=== PATIENT | male | born 1980 | race Caucasian/White ===

== ENCOUNTER 2016-07-17 15:57 | Emergency (ER) | payer OTHER, MEDICAID ==
--- NOTE | 2016-07-17 15:49 | EDPHY ---
H & P Time Seen by Provider: 07/17/16 16:25 Constitutional: Initial Vital Signs Temperature (C) 36.7 C 07/17/16 16:00 Heart Rate 89 07/17/16 16:00 Respiratory Rate 18 07/17/16 16:00 Blood Pressure 112/55 L 07/17/16 16:00 O2 Sat (%) 96 07/17/16 16:00 O2 Delivery Mode Room Air Allergies/Adverse Reactions: Penicillins Allergy (Severe, Verified 07/17/16 16:04) COTTONWOOD Allergy (Uncoded 12/25/13 23:03) Home Medications: Medication Instructions Recorded NK [No Known Home Meds] 07/17/16 Medical Decision Making ED Course/Re-evaluation: CHIEF COMPLAINT: Mechanical fall, right hip pain HISTORY OF PRESENT ILLNESS: This patient is a 36 year old male with a history of muscular dystrophy who presents to the Emergency Department complaining of moderate right hip pain secondary to a mechanical fall earlier today. He is able to bear weight on his right side but his discomfort is exacerbated when sitting. He also complains of pain and swelling to his left thumb secondary to the fall. He denies any additional injuries or complaints. He denies trauma to his head, neck, or back in the fall. No additional pertinent medical history. REVIEW OF SYSTEMS: A 10 point review of systems was performed and is negative with the exception of the elements mentioned in the history of present illness. PHYSICAL EXAM: HR 89, BP 112/55, O2 Sat 96%, RR 18. Temp noted General Appearance: Alert, well hydrated, appropriate, and non-toxic appearing. Head: Atraumatic without scalp tenderness or obvious injury Eyes: Pupils equal, round, reactive to light and accommodation, EOMI, no trauma , no injection. Ears: Clear bilaterally, no perforation, normal landmarks Nose: Atraumatic, no rhinorrhea, clear. Throat: There is no erythema or exudates, no lesions, normal tonsils, mucus membranes moist. Neck: Supple, 2+ carotid upstroke, nontender, no lymphadenopathy. Respiratory: No retractions, no distress, no wheezes, and no accessory muscle use. Lungs are clear to auscultation bilaterally. Cardiovascular: Regular rate and rhythm, no murmurs, rubs, or gallops. Bilateral carotid, radial, dorsalis pedis, and posterior tibial pulses intact. Good capillary refill all extremities. Gastrointestinal: Abdomen is soft, nontender, non-distended, no masses, no rebound, no guarding, no peritoneal signs. Musculoskeletal: Pain over his bony pelvis, right-sided. Pain and mild swelling of the left thumb and wrist. Neurological: Alert, appropriate, and interactive. The patient has normal DTRs and non-focal cranial nerves, motor, sensory, and cerebellar exam. Skin: No rashes, good turgor, no nodules on palpation. Past medical history: Muscular dystrophy. Past surgical history: Denies. Family history: Non-contributory. Social history: Homeless. DIAGNOSTICS/PROCEDURES/CRITICAL CARE TIME: Study: X-ray of the right femur Indication: Pain, trauma Results: X-ray of the right femur was obtained. The results of the study are: negative for fracture. The study was read by the radiologist, Dr. Deacon Hollins. I viewed the images myself on the PACS system. Study: X-ray of the left wrist Indication: Pain, trauma Results: X-ray of the left wrist was obtained. The results of the study are: negative for fracture. The study was read by the radiologist, Dr. Deacon Hollins. I viewed the images myself on the PACS system. DIFFERENTIAL DIAGNOSIS: The differential diagnosis for the patient's trauma included but was not limited to long bone and pelvic bone fractures or contusion. MEDICAL DECISION MAKING: This patient is a 36 year old male with muscular dystrophy who presents with complaints of right hip injury and left hand injury secondary to a mechanical fall this afternoon. On exam, he has mild swelling and pain to his left hand most severe over his left thumb. He has left-sided pain over the bony pelvis. Will proceed with x-rays of both. Images reviewed by myself and are negative for fracture. I discussed imaging results with the patient and answered his questions. He will be discharged home in good condition with Tylenol and Ibuprofen instructions. He is agreeable to this and understands return precautions. Departure - Departure Disposition: Home, Routine, Self-Care Clinical Impression: Right hip pain Fall Qualifiers: Encounter type: initial encounter Qualified Code(s): W19.XXXA - Unspecified fall, initial encounter Thumb injury Qualifiers: Encounter type: initial encounter Laterality: left Qualified Code(s): S69.92XA - Unspecified injury of left wrist, hand and finger(s), initial encounter Condition: Good Instructions: Hip Pain (ED), Finger Sprain (ED) Additional Instructions: 1. Alternate 450mg Ibuprofen and 600mg Tylenol every 6 hours as needed for pain and swelling. 2. Return to the Emergency Department if you experience worsening pain or swelling or for other serious concerns. 3. Follow-up with [facility] for reevaluation if your pain does not improve in 3-5 days. Referrals: [facility] [Outside] - As per Instructions Report Scribed for: Kp Mehta Report Scribed by: Radha Felix Date of Report: 07/17/16 Time of Report: 16:26
[2016-07-17 16:06] VITALS: RESP 18; TEMP 98.1
[2016-07-17] MEDS ORDERED: IBUPROFEN 200 MG TAB PO ONE ×2 (17:48→17:56)
[2016-07-17 17:57] VITALS: BP 132/78; PULSE 78; O2SAT 99
== END 2016-07-17 17:59 | disposition home or self-care (01) ==
LOC: EDUNIT#
DX: S79.911A Unspecified injury of right hip, initial encounter (principal); S69.92XA Unspecified injury of left wrist, hand and finger(s), initial encounter; W18.39XA Other fall on same level, initial encounter; Y93.89 Activity, other specified

== ENCOUNTER 2016-07-31 12:17 | Emergency (ER) | payer OTHER, MEDICAID ==
[2016-07-31 12:32] VITALS: O2SAT 93
--- NOTE | 2016-07-31 13:18 | EDPHY ---
H & P Time Seen by Provider: 07/31/16 13:00 HPI/ROS: CHIEF COMPLAINT: "I'm cold." HISTORY OF PRESENT ILLNESS: This patient is a homeless 36 year old male who presents to the Emergency Department after he awoke in the snow after falling asleep while intoxicated last night. He reports that he awoke without shoes on and was so cold that he was no longer able to remain outside, prompting him to present to the ED. He has no additional complaints. Denies recent illnesses or infections. Medical history includes muscular dystrophy. REVIEW OF SYSTEMS: Constitutional: As in HPI Eyes: No visual changes ENT: No sore throat Respiratory: No cough, no shortness of breath Cardiac: No chest pain Gastrointestinal: No nausea, no vomiting, no abdominal pain Genitourinary: No hematuria, no dysuria Musculoskeletal: No leg pain or swelling Skin: No rash Neurological: No headache, no numbness, no weakness Psychiatric: No depression Past Medical/Surgical History: Muscular dystrophy. Social History: Homeless. Smokes daily. Alcohol abuse. Smoking Status: Current every day smoker Physical Exam: General Appearance: Alert, appears comfortable Eyes: Pupils equal and round, no conjunctival pallor ENT, Mouth: Mucous membranes moist Neck: Normal inspection Respiratory: Lungs are clear to auscultation Cardiovascular: Regular rate and rhythm Gastrointestinal: Abdomen is soft and non-tender Neurological: A&O, nonfocal, normal gait Skin: Warm and dry, no rash Extremities: Nontender, no pedal edema, no blisters, no signs of frostbite Psychiatric: Mood and affect normal Constitutional: Initial Vital Signs Temperature (C) 35.5 C L 07/31/16 12:29 Heart Rate 87 07/31/16 12:29 Respiratory Rate 22 H 07/31/16 12:29 Blood Pressure 137/97 H 07/31/16 12:29 O2 Sat (%) 93 07/31/16 12:29 O2 Delivery Mode Room Air Allergies/Adverse Reactions: Penicillins Allergy (Severe, Verified 07/17/16 16:04) COTTONWOOD Allergy (Uncoded 12/25/13 23:03) Home Medications: Medication Instructions Recorded NK [No Known Home Meds] 07/17/16 Medical Decision Making ED Course/Re-evaluation: 36 year old homeless male with history of muscular dystrophy presents with decreased body temperature of 35.5C after falling asleep outside in the snow last night. After warming in the ED, he feels comfortable. Denies pain or additional concerns. Physical exam is benign; appropriate capillary refill bilaterally to both feet. Will continue to monitor in the ED prior to discharge. 1357: On reevaluation, the patient is feeling much better. He is alert, sitting up, and painting his nails. He feels ready to be discharged home but expresses need for a new pair of shoes. I discussed this with case management who will arrange this. He will be given return precautions and hours of [facility] and local shelters prior to discharge. Differential Diagnosis: includes though not limited to frostbite, alcohol intoxication, dysrhythmia, hypoglycemia Departure - Departure Disposition: Home, Routine, Self-Care Clinical Impression: Decreased body temperature Condition: Good Instructions: Acute Hypothermia (ED) Additional Instructions: The [facility] has walk-in appointments for the homeless at the following days/locations. No appointment is needed. Saturday 8-10 am @ [facility] 11 AM-1 PM @ [facility] Saturday 8-10:30 AM @ [facility] Saturday 8-10 AM @ [facility] 2-4 PM @ [facility] Saturday 8-10 AM @ [facility] Referrals: [facility],. [Clinic] - As per Instructions Report Scribed for: Nohemi Tarango Report Scribed by: Radha Felix Date of Report: 07/31/16 Time of Report: 13:15 Physician Review and Approval Statement: 07/31/16 13:15 Portions of this note were transcribed by a medical director. I personally performed a history, physical exam, medical decision making, and confirmed accuracy of information the transcribed note.
[2016-07-31 15:22] VITALS: BP 148/75; PULSE 79; RESP 18; TEMP 97.9
== END 2016-07-31 15:16 | disposition home or self-care (01) ==
LOC: EDUNIT#
DX: T68.XXXA Hypothermia, initial encounter (principal); F17.200 Nicotine dependence, unspecified, uncomplicated; X31.XXXA Exposure to excessive natural cold, initial encounter

== ENCOUNTER 2016-08-11 02:44 | Emergency (ER) | payer OTHER, MEDICAID ==
[2016-08-11 02:55] VITALS: RESP 16
[2016-08-11] MEDS ORDERED: ALBUTEROL 3 ML DEYVIAL IH ONE (03:35)
[2016-08-11] MEDS ORDERED: AZITHROMYCIN 250 MG TAB PO ONE (03:36)
[2016-08-11] MEDS ORDERED: ALBUTEROL INH PREPACK MDI TAKEHOME ONE (03:40)
--- NOTE | 2016-08-11 03:40 | EDPHY ---
H & P Stated Complaint: productive cough x1wk, SOB, rhinorrhea, chronic bronchitis Time Seen by Provider: 08/11/16 03:25 HPI/ROS: Chief Complaint: Cough, wheeze, shortness of breath HPI: 36-year-old homeless male presenting from the shoulder complaining of 2 days of worsening cough and wheezing. Patient states he has a history of bronchitis in the past and feels similar. He is a smoker. Denies any fevers or chills. No nausea or vomiting. No chest pain. Has had some mild shortness of breath with coughing. ROS: 10 point Review of Systems is negative except as noted in the HPI. PMH: Muscular dystrophy Medications: None Allergies: Penicillin Social History: Positive for smoking, no alcohol, no recreational drug use Family History: non-contributory Physical Exam: Gen: Awake, Alert, No Distress HEENT: Nose: no rhinorrhea Eyes: PERRLA, EOMI Mouth: Moist mucosa Neck: Supple, no JVD Chest: nontender, diffuse expiratory wheezing, no focal rales or rhonchi Heart: S1, S2 normal, no murmur Abd: Soft, non-tender, no guarding Back: no CVA tenderness, no midline tenderness Ext: no edema, non-tender Skin: no rash Neuro: CN II-XII intact, Sensation grossly intact, Strength 5/5 in bilateral upper and lower extremities - Personal History Current Tetanus/Diphtheria Vaccine: Yes Current Tetanus Diphtheria and Acellular Pertussis (TDAP): Yes Tetanus Vaccine Date: <10 YRS - Medical/Surgical History Hx Asthma: No Hx Chronic Respiratory Disease: No Hx Diabetes: No Hx Cardiac Disease: No Hx Renal Disease: No Hx Cirrhosis: No Hx Alcoholism: No Hx HIV/AIDS: No Hx Splenectomy or Spleen Trauma: No Other PMH: muscular dystrophy, chronic pain - Social History Smoking Status: Current every day smoker Constitutional: Initial Vital Signs Temperature (C) 36.4 C 08/11/16 02:46 Heart Rate 95 08/11/16 02:46 Respiratory Rate 16 08/11/16 02:46 Blood Pressure 119/84 H 08/11/16 02:46 O2 Sat (%) 94 08/11/16 02:46 O2 Delivery Mode Room Air Allergies/Adverse Reactions: Penicillins Allergy (Severe, Verified 07/17/16 16:04) COTTONWOOD Allergy (Uncoded 12/25/13 23:03) Home Medications: Medication Instructions Recorded AZITHROMYCIN [Z-PACK] 250 mg PO DAILY #6 tab 08/11/16 Tizanidine HCl 08/11/16 Departure - Departure Disposition: Home, Routine, Self-Care Clinical Impression: Acute bronchitis Condition: Good Instructions: Acute Bronchitis (ED) Additional Instructions: May use inhaler 2 puffs every 4 hours as needed for wheeze or cough, always use a spacer with her inhaler. Please take her full course of antibiotics. Follow up with primary care physician in 3-4 days for re-evaluation. Referrals: Freda Mendez NP [Primary Care Provider] - As per Instructions Prescriptions: AZITHROMYCIN [Z-PACK] 250 mg PO DAILY #6 tab
[2016-08-11 04:22] VITALS: BP 135/91; PULSE 100; TEMP 97.7; O2SAT 98
== END 2016-08-11 04:20 | disposition home or self-care (01) ==
DX: J20.9 Acute bronchitis, unspecified (principal); F17.200 Nicotine dependence, unspecified, uncomplicated